=== PATIENT | male | born 1935 | race Caucasian/White ===

== ENCOUNTER 2016-11-26 08:59 | Inpatient (IN) | payer MEDICARE, BC ==
[2016-11-26] VITALS (13 sets, daily range): BP systolic 150–181; BP diastolic 60–95; PULSE 54–71; RESP 18–23; TEMP 97.4–98.6; O2SAT 90–98
[~2016-11-26] VITALS: Ht 177.8 cm; Wt 116.2 kg
[~2016-11-26 08:59] MED LIST: ASTE137S5; CENTTAB9 PO; CILO100T PO; CLOP75 PO; DIGO0.12 PO; EQL400TA PO; GABA300C3 PO; KRIL300C PO; LANTINJ SC; LISI-366 PO; METF-324 PO; METO25 PO; ROSU5 PO; SYMB160A INH; WARF5TAB PO; ZYRT10TA12 PO
[2016-11-26] MEDS ORDERED: APIX5TAB PO (09:27)
[2016-11-26 10:07] LABS: AUTOMATED NEUTROPHIL # 6.4 TH/MM3 (1.8-7.7); BASOPHIL # 0.1 TH/MM3 (0-0.2); EOSINOPHIL # 0.3 TH/MM3 (0-0.4); EOSINOPHIL % 3.1 % (0.0-4.0); HEMATOCRIT 36.7 % (39.0-51.0); HEMO FLAGS DIFF FINAL; LYMPH % 12.9 % (9.0-44.0); LYMPHOCYTE # 1.1 TH/MM3 (1.0-4.8); MEAN CELL VOLUME 90.7 FL (80.0-100.0); MEAN CORPUSCULAR HEMOGLOBIN 31.9 PG (27.0-34.0); MEAN CORPUSCULAR HGB CONC 35.2 % (32.0-36.0); PLATELET COUNT 183 TH/MM3 (150-450); RED BLOOD COUNT 4.05 MIL/MM3 (4.50-5.90); RED CELL DISTRIBUTION WIDTH 14.7 % (11.6-17.2); WHITE BLOOD COUNT 8.7 TH/MM3 (4.0-11.0)
[2016-11-26] MEDS ORDERED: FOLI400T PO (10:15)
[2016-11-26] MEDS ORDERED: LANTINJ SQ (10:15)
[2016-11-26] MEDS ORDERED: LISI40TA PO (10:15)
[2016-11-26] MEDS ORDERED: NIAC500T18 PO (10:15)
[2016-11-26] MEDS ORDERED: ATOR1TAB18 PO (10:15)
[2016-11-26] MEDS ORDERED: KRIL300C3 PO (10:15)
[2016-11-26] MEDS ORDERED: METO25TA3 PO (10:15)
[2016-11-26] MEDS ORDERED: SYMB80AE INH (10:15)
[2016-11-26] MEDS ORDERED: DIGO0.12 PO (10:15)
[2016-11-26] MEDS ORDERED: COQ-100C2 PO (10:15)
[2016-11-26] MEDS ORDERED: SODIUM CHLOR 0.9% 1000 ML INJ 1,000 ML IV SCH (10:15)
[2016-11-26] MEDS ORDERED: CENTTAB PO (10:15)
[2016-11-26] MEDS ORDERED: CALC0.25 PO (10:15)
[2016-11-26] MEDS ORDERED: CILO100T PO (10:15)
[2016-11-26 10:18] LABS: APTT (PATIENT) 27.8 SEC (24.3-30.1); PROTHROMBIN TIME - PATIENT 11.3 SEC (9.8-11.6)
[2016-11-26 10:41] LABS: BICARBONATE 21.2 MEQ/L (21.0-32.0); POTASSIUM 4.1 MEQ/L (3.5-5.1)
[2016-11-26] MEDS ORDERED: MIDAZOLAM HCL 5 MG/5 ML VIAL ONE (11:35)
[2016-11-26] MEDS ORDERED: fentaNYL CITRATE 250 MCG/5 ML AMP ONE (11:36)
[2016-11-26] MEDS ORDERED: HEPARIN-D5W INJ 250 ML ONE (12:25)
--- NOTE | 2016-11-26 12:38 | PD.RAD ---
Post Procedure Progress Note Pre Procedure Diagnosis: (1) Claudication Post Procedure Diagnosis: (1) Claudication Procedure Date: Nov 26, 2016 Supervising Radiologist: Jb Nayak Proceduralist/Assist: Tina Tran, RT(R), Stephany Carson RT(R)() Anesthesia: Conscious Sedation Plan of Activity Patient to Unit: Nursing Unit Patient Condition: Good See PACS Report for procedural detail/treatment Vascular-Arterial Procedure Procedure 1 Procedure Site: Right Leg Access Access Site(s): Other (right fem fem bypass) Sheath(s) Remaining: Other (right fem fem bypass) Jb Nayak MD Nov 26, 2016 12:38
[2016-11-26] MEDS ORDERED: MORPHINE SULFATE 4 MG/ML INJ IV PUSH PRN (12:45)
[2016-11-26] MEDS ORDERED: HEPARIN INJ 1,000 UNITS in SODIUM CHLORID 0.9% 500 ML INJ 500 ML IART PRN (12:45)
[2016-11-26] MEDS ORDERED: ONDANSETRON HCL 4 MG/2 ML VIAL IV PRN (12:45)
[2016-11-26] MEDS: CATHFLO ACTIVASE INJ 10 MG in SODIUM CHLORID 0.9% 500 ML INJ 500 ML IART SCH ×2 (13:34→20:54)
[2016-11-26] MEDS ORDERED: HEPARIN-D5W INJ 250 ML IV SCH (14:00)
[2016-11-26] MEDS ORDERED: HEPARIN INJ 1,000 UNITS in SODIUM CHLORID 0.9% 500 ML INJ 500 ML IART SCH (14:00)
[2016-11-26] MEDS ORDERED: GLUCAGON 1 MG/ML VIAL OTHER PRN (15:45)
[2016-11-26] MEDS ORDERED: DEXTROSE 50% IN WATER 50 ML VIAL(D50) IV PUSH PRN (15:45)
[2016-11-26] MEDS: MORPHINE SULFATE 4 MG/ML INJ IV PUSH PRN (16:05)
--- NOTE | 2016-11-26 16:56 | RADRPT ---
EXAM DATE/TIME: 11/26/2016 11:27 [facility] COMPARISON: No previous studies available for comparison. INDICATIONS : Patient with history of thrombus in need of leg angiogram for thrombolytic infusion. MEDICAL HISTORY : Bilateral lower extremity claudication, Diabetes, CAD, HTN, A-Fib, HLD, Peripheral neuropathy, COPD, GERD, Arthritis SURGICAL HISTORY : Right ureteral stent placement and removal, Right and left carotid endarterectomy, CABG X4, Left comm on iliac covered stent placement, Left to Right femoral-femoral bypass ENCOUNTER: Initial ACUITY: 1 month PAIN SCORE: 0/10 FLUORO TIME: 5.8 minutes ACCESS SITE: Right Femoral artery SEDATION TIME: 30 minutes MEDICATION(S): 1.) 2 mg midazolam (Versed) IV 2.) 100 mcg fentanyl (Sublimaze) IV DEVICE(S): 1.) Right to left Femoral-Femoral bypass EV3 Infusion catheter [id number] PROCEDURE : 1. Ultrasound-guided puncture of the access site. 2. Conscious sedation with continuous EKG and oximetry monitoring. 3. Angiography of the pelvis 4. Angiography of the left to right femoral-femoral bypass graft 5. Infusion for thrombolysis The risks, benefits and alternatives to the procedure were explained and verbal and written consent w as obtained. The site was prepped in sterile fashion. Full sterile technique was used, including ca p, mask, sterile gloves and gown and a large sterile sheet. Hand hygiene and 2% chlorhexidine and/or betadine/alcohol prep was utilized per protocol for cutaneous antisepsis. The skin and subcutaneous tissues were infiltrated with local anesthetic solution. With ultrasound and fluoroscopic guidance the prescribed common femoral artery was punctured and a va scular sheath was placed in the femoral-femoral bypass graft from right to left. An Omni Flush cathet er was advanced through the graft into the distal aorta. CO2 angiography was performed over the pelvi s and the catheter was then pulled back into the femoral-femoral bypass graft. Examination demonstrat es no evidence of inflow stenosis. There is complete thrombosis of the bypass graft. The catheter was exchanged for a 30 cm multiside hole infusion catheter and TPA infusion was begun. If you've has con tinued overnight and the patient will be revaluated the following day. Conscious sedation was performed with the prescribed dosages and duration as above. EKG and oximetry remained stable throughout the procedure. CONCLUSION: Uncomplicated initiation of thrombolytic therapy as above. Complete occlusion of femo ral-femoral bypass graft Jb Nayak MD on November 26, 2016 at 16:33 Board Certified Radiologist. This report was verified electronically.
--- NOTE | 2016-11-26 19:04 | PD.CONS ---
HPI Service [facility] Hospitalists Consult Requested By Dr Fowler Reason for Consult medical management Primary Care Physician Kamille Fairchild Diagnoses: History of Present Illness 81-year-old male with multiple multiple medical problems. The patient is known to Dr Fowler vascular surgeon for previous vascular procedures. Patient says he had his [address] Fowler a week ago and says he also had experienced some pain in his right leg more than usual getting worse over the past week. The patient was seen by Dr Fowler in his office was found with complete occlusion of femoral graft IS and he was sent to [place] for IR intervention by IR, patient is s/p Us guided thrombolytic infusion. He is observed overnight in ICU. Patient was seen after the procedure in ICU. He feels good. No fever or chills. No n/v/d/c. Was able to eat without n/v. Plan for repeat thrombolytic infusion tomorrow . Patient is NPO . Will hold lantus and all his home DM meds for now. will place on ISS and accuchecks. Patient has no pain at this time. Doppler US at bedside shows good peripheral pulses. No rash. Legs are warm, neurovascular intact. No fever or chills. No chest pain or sob. No diaphoresis, lightheadedness. Denies headache, change in vision. Able to urinate after the procedure, no hematuria. No over bleeding. Review of Systems Other 12 ROS reviewed, negative except stated in HPI Past Family Social History Allergies: Coded Allergies: Penicillin (Unverified Allergy, Severe, RASH, 11/26/16) Past Medical History History of bilateral lower extremity palpitations status post multiple stents Type 2 diabetes mellitus coronary artery disease status post coronary artery bypass graft chronic persistent atrial fibrillation Hypertension Hypercholesterolemia Diabetes peripheral neuropathy Lumbosacral degenerative joint disease COPD Past Surgical History Left common iliac stent placement/left to right femoral - femoral bypass Right urethral stent May 2000 and removed June 2000 Right carotid endarterectomy in 1999 preceding four-vessel CABG Left carotid endarterectomy 03/18/12 Reported Medications Reported Meds & Active Scripts Active Reported Niacin (Niacinamide) 500 Mg Tab 1 Tab PO BID Coq-10 (Coenzyme Q10 (Ubidecarenone)) 100 Mg Cap 1 Cap PO DAILY Symbicort Inh (Budesonide/Formoterol Fumarate) 80-4.5 Mcg/Act Aero 2 Puff INH BID Calcitriol 0.25 Mcg Cap 0.25 Mcg PO HS Atorvastatin (Atorvastatin Calcium) 80 Mg Tab 40 Mg PO HS Lisinopril 40 Mg Tab 40 Mg PO DAILY Cilostazol 100 Mg Tab 100 Mg PO HS Lantus Solostar Pen Inj (Insulin Glargine) 300 Unit/3 Ml Pen 26 Units SQ HS Krill Oil [place]-3 300 mg (Krill Oil) 1 Cap Cap 1 Cap PO DAILY Metoprolol Tartrate 25 Mg Tab 25 Mg PO BID Centrum Silver (Multiple Vitamins W/ Minerals) 1 Tab 1 Tab PO DAILY Folic Acid 400 Mcg Tab 400 Mcg PO DAILY Digoxin 0.125 Mg Tab 0.125 Mg PO EVERY OTHER DAY Eliquis (Apixaban) 5 Mg Tab 5 Mg PO BID Crestor (Rosuvastatin Calcium) 5 Mg Tab 5 Mg PO HS UNKNOWN DOSE Cilostazol 100 Mg Tab 100 Mg PO BID Plavix (Clopidogrel Bisulfate) 75 Mg Tab 75 Mg PO DAILY Lisinopril 40 mg (Lisinopril) 40 Mg Tab 40 Mg PO DAILY Lantus Solostar Pen (Insulin Glargine) 100 Units/Ml Vial 32 Units SC HS Zyrtec (Cetirizine HCl) 10 Mg Tab 10 Mg PO DAILYPRN Gabapentin 300 Mg Cap 300 Mg PO BID Krill Otb543 Mg 300 Mg Cap 300 Mg PO DAILY Symbicort (Budesonide/Formoterol Fumarate) 160 Mcg/4.5 Mcg Aer 2 Puff INH DAILYPRN * SHAKE WELL BEFORE USE * Metoprolol Tartrate 25 mg (Metoprolol Tartrate) 25 Mg Tab 25 Mg PO BID Centrum (Multivitamins) Tab 1 Tab PO DAILY Metformin ER 24 HR (Metformin HCl) 1,000 Mg Tab 1,000 Mg PO BID Eql Folic Acid (Folic Acid) 400 Mcg Tab 400 Mcg PO DAILY Digoxin 0.125 mg (Digoxin) 0.125 Mg Tab 0.125 Mg PO EVERY OTHER DAY Astelin (Azelastine HCl) 137 Mcg Spr 1 Inhalation NA DIRECTED Family History History of smoking 20 year pack. Quit smoking 30 years ago. 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 No illicit drug use or alcohol use. Social History Father at the age of 78 and leukemia Mother heart failure, at the age of 82. Physical Exam Vital Signs Vital Signs Date Time Temp Pulse Resp B/P Pulse Ox O2 Delivery O2 Flow Rate FiO2 11/26/16 16:35 58 18 150/70 97 11/26/16 16:05 62 18 151/60 97 11/26/16 15:35 62 18 151/60 97 11/26/16 15:05 55 18 155/78 98 11/26/16 14:35 58 18 170/85 97 11/26/16 14:05 58 18 167/80 97 11/26/16 13:35 58 18 160/87 97 11/26/16 13:05 56 18 176/87 98 11/26/16 12:50 97.4 54 20 159/86 90 11/26/16 09:27 97.6 71 20 181/95 93 Physical Exam GENERAL: This is a well-nourished, well-developed patient, in no apparent distress. SKIN: No rashes, ecchymoses or lesions. Cool and dry. HEAD: Atraumatic. Normocephalic. No temporal or scalp tenderness. EYES: Pupils equal round and reactive. Extraocular motions intact. No scleral icterus. No injection or drainage. ENT: Nose without bleeding, purulent drainage or septal hematoma. Throat without erythema, tonsillar hypertrophy or exudate. Uvula midline. Airway patent. NECK: Trachea midline. No JVD or lymphadenopathy. Supple, nontender, no meningeal signs. CARDIOVASCULAR: Regular rate and rhythm without murmurs, gallops, or rubs. RESPIRATORY: Clear to auscultation. Breath sounds equal bilaterally. No wheezes , rales, or rhonchi. GASTROINTESTINAL: Abdomen soft, non-tender, nondistended. No hepato-splenomegaly , or palpable masses. No guarding. MUSCULOSKELETAL: Extremities without clubbing, cyanosis, or edema. No joint tenderness, effusion, or edema noted. BL DP pulses present by US doppler at bedside NEUROLOGICAL: Awake and alert. Cranial nerves II through XII intact. Motor and sensory grossly within normal limits. Five out of 5 muscle strength in all muscle groups. Normal speech. Laboratory Laboratory Tests Test 11/26/16 09:50 White Blood Count 8.7 Red Blood Count 4.05 Hemoglobin 12.9 Hematocrit 36.7 Mean Corpuscular Volume 90.7 Mean Corpuscular Hemoglobin 31.9 Mean Corpuscular Hemoglobin 35.2 Concent Red Cell Distribution Width 14.7 Platelet Count 183 Mean Platelet Volume 7.4 Neutrophils (%) (Auto) 73.0 Lymphocytes (%) (Auto) 12.9 Monocytes (%) (Auto) 10.0 Eosinophils (%) (Auto) 3.1 Basophils (%) (Auto) 1.0 Neutrophils # (Auto) 6.4 Lymphocytes # (Auto) 1.1 Monocytes # (Auto) 0.9 Eosinophils # (Auto) 0.3 Basophils # (Auto) 0.1 CBC Comment DIFF FINAL Differential Comment Prothrombin Time 11.3 Prothromb Time International 1.0 Ratio Activated Partial 27.8 Thromboplast Time Sodium Level 142 Potassium Level 4.1 Chloride Level 110 Carbon Dioxide Level 21.2 Anion Gap 11 Blood Urea Nitrogen 39 Creatinine 2.10 Estimat Glomerular Filtration 31 Rate Random Glucose 135 Calcium Level 8.6 Result Diagram: 11/26/16 0950 11/26/16 0950 Imaging Last Impressions Angiography 11/26/16 0000 Signed Impressions: Service Date/Time: Saturday, November 26, 2016 11:27 - CONCLUSION: Uncomplicated initiation of thrombolytic therapy as above. Complete occlusion of femoral-femoral bypass graft Jb Nayak MD Assessment and Plan Assessment and Plan Complete occlusion of femoral graft IS status post procedure by IR Dr. Nayak Patient has a h/o History of bilateral lower extremity palpitations status post multiple stents Management per Dr. Fowler and Dr. Nayak Admitted to ICU overnight for close observation Vital signs stable at this time. Monitor closely. Check CBC and BMP tomorrow. Type 2 diabetes mellitus/ Diabetes peripheral neuropathy. Insulin sliding scale , hold Lantus as patient will be frequently NPO, check BS Accu-Cheks. Resume gabapentin Coronary artery disease status post coronary artery bypass graft chronic persistent atrial fibrillation, Hypertension, Hypercholesterolemia. Stable at this time. Continue home medications. Lumbosacral degenerative joint disease. Stable at this time. Continue home medications COPD. Stable without exacerbation. Continue home medications. Code Status full code Discussed Condition With patient nurse from [facility] and nurse from ICU Cathleen Ramon MD Nov 26, 2016 19:04
[2016-11-26] MEDS ORDERED: INSULIN DETEMIR 100 UNITS/ML VIAL SQ SCH (21:00)
[2016-11-26] MEDS: INSULIN ASPART SUPPLEMENTAL SCALE SQ SCH (21:00)
[2016-11-26] MEDS ORDERED: APIXABAN 5 MG TABLET PO SCH (21:00)
[2016-11-26] MEDS: ATORVASTATIN 40 MG TAB PO SCH (21:23)
[2016-11-26] MEDS: CALCITRIOL 0.25 MCG CAP PO SCH (21:23)
[2016-11-26] MEDS: METOPROLOL TARTRATE 25 MG TAB PO SCH (21:23)
[2016-11-26] MEDS: CILOSTAZOL 100 MG TAB PO SCH (21:36)
[2016-11-26] MEDS: BUDESONIDE-FORMOTEROL 80/4.5 MCG INHALER INH SCH (21:36)
[2016-11-26] MEDS: NIACIN 100 MG TAB PO SCH (21:36)
[2016-11-27] VITALS (11 sets, daily range): BP systolic 102–157; BP diastolic 46–81; PULSE 10–102; RESP 16–26; TEMP 96.5–98.8; O2SAT 96
[2016-11-27 06:51] LABS: APTT (PATIENT) 28.2 SEC (24.3-30.1)
[2016-11-27] MEDS: INSULIN ASPART SUPPLEMENTAL SCALE SQ SCH ×3 (07:00→20:23)
[2016-11-27] MEDS: MORPHINE SULFATE 4 MG/ML INJ IV PUSH PRN ×2 (07:26→07:30)
[2016-11-27] MEDS: NIACIN 100 MG TAB PO SCH ×2 (08:32→20:24)
[2016-11-27] MEDS: FOLIC ACID 1 MG TAB PO SCH (08:32)
[2016-11-27] MEDS: CATHFLO ACTIVASE INJ 10 MG in SODIUM CHLORID 0.9% 500 ML INJ 500 ML IART SCH (08:32)
[2016-11-27] MEDS: LISINOPRIL 20 MG TAB PO SCH (08:32)
[2016-11-27] MEDS: BUDESONIDE-FORMOTEROL 80/4.5 MCG INHALER INH SCH ×2 (08:33→20:25)
[2016-11-27] MEDS: METOPROLOL TARTRATE 25 MG TAB PO SCH ×2 (08:40→20:23)
[2016-11-27] MEDS ORDERED: CLOPIDOGREL 75 MG TAB PO SCH (09:00)
[2016-11-27] MEDS ORDERED: MIDAZOLAM HCL 5 MG/5 ML VIAL ONE (10:52)
[2016-11-27] MEDS ORDERED: fentaNYL CITRATE 250 MCG/5 ML AMP ONE (10:52)
[2016-11-27] MEDS ORDERED: IODIXANOL 320 MG/ML 50 ML VIAL (for RAD SPEC) I-ARTERIAL ONE (13:05)
--- NOTE | 2016-11-27 13:41 | HHI.PR ---
Subjective Remarks No events overnight. Denies chest pain, sob, n/v/d/c. Complaint of back pain in the morning. Says is not a new back pain however is getting worse. Received morphine, improved significantly. NPO will go for repeat thrombolytic therapy today. Objective Vitals Vital Signs Date Time Temp Pulse Resp B/P Pulse Ox O2 Delivery O2 Flow Rate FiO2 11/27/16 10:00 69 11/27/16 08:00 82 11/27/16 08:00 96.5 82 16 130/62 96 11/27/16 07:35 16 11/27/16 06:00 81 11/27/16 04:00 98.6 75 23 135/81 96 11/27/16 04:00 66 11/27/16 02:00 78 11/27/16 00:00 98.5 61 22 157/64 96 11/27/16 00:00 61 11/26/16 22:00 66 11/26/16 20:00 66 11/26/16 20:00 98.6 69 23 156/75 96 11/26/16 18:00 62 11/26/16 16:35 58 18 150/70 97 11/26/16 16:05 62 18 151/60 97 11/26/16 15:35 62 18 151/60 97 11/26/16 15:05 55 18 155/78 98 11/26/16 14:35 58 18 170/85 97 11/26/16 14:05 58 18 167/80 97 I/O 11/26/16 11/26/16 11/26/16 11/27/16 11/27/16 11/27/16 07:00 15:00 23:00 07:00 15:00 23:00 Intake Total 813 ml 689 ml Output Total 1500 ml 950 ml Balance -687 ml -261 ml Intake Oral 450 ml 200 ml IV Total 363 ml 489 ml Output Urine Total 1500 ml 950 ml Result Diagram: 11/26/16 0950 11/26/16 0950 Imaging Last Impressions Angiography 11/26/16 0000 Signed Impressions: Service Date/Time: Saturday, November 26, 2016 11:27 - CONCLUSION: Uncomplicated initiation of thrombolytic therapy as above. Complete occlusion of femoral-femoral bypass graft Jb Nayak MD Objective Remarks GENERAL: This is a well-nourished, well-developed patient, in no apparent distress. SKIN: No rashes, ecchymoses or lesions. Cool and dry. HEAD: Atraumatic. Normocephalic. No temporal or scalp tenderness. EYES: Pupils equal round and reactive. Extraocular motions intact. No scleral icterus. No injection or drainage. ENT: Nose without bleeding, purulent drainage or septal hematoma. Throat without erythema, tonsillar hypertrophy or exudate. Uvula midline. Airway patent. NECK: Trachea midline. No JVD or lymphadenopathy. Supple, nontender, no meningeal signs. CARDIOVASCULAR: Regular rate and rhythm without murmurs, gallops, or rubs. RESPIRATORY: Clear to auscultation. Breath sounds equal bilaterally. No wheezes , rales, or rhonchi. GASTROINTESTINAL: Abdomen soft, non-tender, nondistended. No hepato-splenomegaly , or palpable masses. No guarding. MUSCULOSKELETAL: Extremities without clubbing, cyanosis, or edema. No joint tenderness, effusion, or edema noted. BL DP pulses present by US doppler at bedside NEUROLOGICAL: Awake and alert. Cranial nerves II through XII intact. Motor and sensory grossly within normal limits. Five out of 5 muscle strength in all muscle groups. Normal speech. A/P Assessment and Plan Complete occlusion of femoral graft IS status post procedure by IR Dr. Nayak Patient has a h/o History of bilateral lower extremity palpitations status post multiple stents Management per Dr. Fowler and Dr. Nayak Vital signs stable at this time. Monitor closely. Check CBC and BMP stable, monitor Plan for fempop revascularization with TPA by Dr Fowler Type 2 diabetes mellitus/ Diabetes peripheral neuropathy. Insulin sliding scale , resume Lantus, check Accu-Cheks. Resume gabapentin Coronary artery disease status post coronary artery bypass graft chronic persistent atrial fibrillation, Hypertension, Hypercholesterolemia. Stable at this time. Continue home medications. Lumbosacral degenerative joint disease. Stable at this time. Continue home medications COPD. Stable without exacerbation. Continue home medications. Discussed Condition With patient, at bedside, ICU nurse Cathleen Ramon MD Nov 27, 2016 13:40
[2016-11-27] MEDS ORDERED: SODIUM CHLOR 0.9% 1000 ML INJ 1,000 ML IV SCH (14:17)
--- NOTE | 2016-11-27 14:21 | PD.RAD ---
Post Procedure Progress Note Pre Procedure Diagnosis: (1) Claudication Post Procedure Diagnosis: (1) Claudication Procedure Date: Nov 27, 2016 Supervising Radiologist: Jb Nayak Proceduralist/Assist: Quintin Cuadra, RT(R), Maria Teresa Uribe, RT(R)(CV), Tina Tran, RT(R), Stephany Carson, RT(R)(), Sapna Oneill, RT(R)() Anesthesia: Conscious Sedation Plan of Activity Patient to Unit: Nursing Unit Patient Condition: Good See PACS Report for procedural detail/treatment Vascular-Arterial Procedure Procedure 1 Procedure Site: Abdominal Access Access Site(s): Other (fem fem bypass graft right and left) Closure Site(s): Right manual pressure, Left manual pressure Jb Nayak MD Nov 27, 2016 14:20
[2016-11-27 15:54] LABS: HEMATOCRIT 38.3 % (39.0-51.0); MEAN CELL VOLUME 91.5 FL (80.0-100.0); MEAN CORPUSCULAR HEMOGLOBIN 30.9 PG (27.0-34.0); MEAN CORPUSCULAR HGB CONC 33.7 % (32.0-36.0); PLATELET COUNT 158 TH/MM3 (150-450); RED BLOOD COUNT 4.19 MIL/MM3 (4.50-5.90); RED CELL DISTRIBUTION WIDTH 14.9 % (11.6-17.2); REVIEW FLAG FINAL; WHITE BLOOD COUNT 14.3 TH/MM3 (4.0-11.0)
[2016-11-27 16:02] LABS: APTT (PATIENT) 28.6 SEC (24.3-30.1); INTERNATIONAL NORMALIZED RATIO 1.1 RATIO
[2016-11-27] MEDS: HEPARIN 25,000 UNITS-D5W 250 ML - PREMIX IV SCH ×2 (16:07→23:21)
--- NOTE | 2016-11-27 16:41 | RADRPT ---
EXAM DATE/TIME: 11/27/2016 11:02 [facility] COMPARISON: No previous studies available for comparison. INDICATIONS : Patient with history of thrombus in need of follow up thrombolytic infusion. MEDICAL HISTORY : Diabetes, CAD, A-Fib, HTN, HLD, Peripheral neuropathy, COPD, GERD, Arthritis SURGICAL HISTORY : Left common iliac stent placement, Left to right femoral-femoral bypass, Right ureteral stent placeme nt and removal, Right and left carotid endarterectomy, CABG X4 ENCOUNTER: Subsequent ACUITY: 1 day PAIN SCORE: 0/10 FLUORO TIME: 23.8 minutes ACCESS SITE: Left Femoral artery SEDATION TIME: 75 minutes CONTRAST: 1.) 8 cc Visipaque (iodixanol) MEDICATION(S): 1.) 3 mg midazolam (Versed) IV 2.) 150 mcg fentanyl (Sublimaze) IV DEVICE(S): 1.) Right Bypass graft/Femoral artery MICROCHIP SPECIALIST balloon [place] [id number] 75CM 2.) Right Bypass graft/Femoral artery MICROCHIP SPECIALIST balloon [place] [id number] 75CM 3.) Right Bypass graft/Femoral artery MICROCHIP SPECIALIST balloon Peripheral cutting balloon [id number] PROCEDURE: 1. Followup thrombolysis 2. shot guided puncture of the femoral femoral bypass graft on the left 3. angioplasty of the right femoral-femoral bypass graft anastomosis 4. Angiography of the right lower extremity. 5. Conscious sedation with continuous EKG and oximetry monitoring. Following TPA infusion the patient returned to the angiography suite for evaluation. Injection of the graft demonstrates no evidence of inflow stenosis and brisk antegrade flow to the di stal portion of the graft but no outflow stenosis. With ultrasound and fluoroscopic guidance the graft was punctured on the left directed towards the ou tflow and angiography demonstrates complete occlusion at the level of the anastomosis. A guidewire wa s advanced through the anastomosis and serial angioplasty was performed to a diameter of 7 mm. Follow up angiography demonstrates complete resolution of this stenosis. CO2 angiography was performed to ev aluated distal runoff to the level of the knee which was intact. Total contrast volume was 8 cc. Conscious sedation was performed with the prescribed dosages and duration as above. EKG and oximetry remained stable throughout the procedure. CONCLUSION: 1. Uncomplicated thrombolysis and angioplasty of occluded femoral femoral bypass graft. Jb Nayak MD on November 27, 2016 at 16:35 Board Certified Radiologist. This report was verified electronically.
[2016-11-27] MEDS: ACETAMINOPHEN 325 MG TAB PO PRN (17:08)
[2016-11-27] MEDS: CALCITRIOL 0.25 MCG CAP PO SCH (20:23)
[2016-11-27] MEDS: ATORVASTATIN 40 MG TAB PO SCH (20:23)
[2016-11-27] MEDS: CILOSTAZOL 100 MG TAB PO SCH (20:24)
[2016-11-27 23:19] LABS: APTT (PATIENT) 81.2 SEC (24.3-30.1)
[2016-11-28] VITALS (12 sets, daily range): BP systolic 93–124; BP diastolic 50–67; PULSE 68–131; RESP 17–24; TEMP 98.1–99; O2SAT 94–97
[2016-11-28 05:37] LABS: AUTOMATED NEUTROPHIL # 10.2 TH/MM3 (1.8-7.7); BASOPHIL % 0.3 % (0.0-2.0); EOSINOPHIL # 0.3 TH/MM3 (0-0.4); EOSINOPHIL % 2.3 % (0.0-4.0); HEMATOCRIT 31.9 % (39.0-51.0); HEMO FLAGS DIFF FINAL; LYMPH % 8.2 % (9.0-44.0); LYMPHOCYTE # 1.1 TH/MM3 (1.0-4.8); MEAN CELL VOLUME 90.6 FL (80.0-100.0); MEAN CORPUSCULAR HEMOGLOBIN 30.8 PG (27.0-34.0); MONO % 10.2 % (0.0-8.0); PLATELET COUNT 142 TH/MM3 (150-450); RED BLOOD COUNT 3.52 MIL/MM3 (4.50-5.90); RED CELL DISTRIBUTION WIDTH 14.7 % (11.6-17.2); WHITE BLOOD COUNT 12.9 TH/MM3 (4.0-11.0)
[2016-11-28 05:54] LABS: APTT (PATIENT) 105.3 SEC (24.3-30.1)
[2016-11-28] MEDS: MORPHINE SULFATE 4 MG/ML INJ IV PUSH PRN (05:57)
[2016-11-28 06:02] LABS: POTASSIUM 4.3 MEQ/L (3.5-5.1)
[2016-11-28] MEDS: INSULIN ASPART SUPPLEMENTAL SCALE SQ SCH ×4 (06:23→21:44)
[2016-11-28] MEDS: ACETAMINOPHEN 325 MG TAB PO PRN (06:41)
--- NOTE | 2016-11-28 09:11 | HHI.PR ---
Subjective Remarks Complaints of right arm pain. Says he has arthritis in the right arm/hand. Says morphine helps. No nausea, vomiting, diarrhea or constipation. Denies fevers chills. No signs of overt bleeding. Kidney function improving. Objective Vitals Vital Signs Date Time Temp Pulse Resp B/P Pulse Ox O2 Delivery O2 Flow Rate FiO2 11/28/16 06:00 131 11/28/16 04:00 106 11/28/16 04:00 99.0 106 21 104/58 94 11/28/16 02:00 95 11/28/16 00:00 98.7 83 21 112/57 96 11/28/16 00:00 83 11/27/16 22:00 89 11/27/16 20:00 98.8 102 20 111/56 96 Automatic Cuff 11/27/16 20:00 102 11/27/16 18:00 10 11/27/16 16:00 97.6 88 26 149/72 96 11/27/16 16:00 88 11/27/16 14:00 96 Nasal Cannula 2.00 11/27/16 14:00 97.4 61 24 102/46 96 11/27/16 14:00 71 11/27/16 10:00 69 I/O 11/27/16 11/27/16 11/27/16 11/28/16 11/28/16 11/28/16 07:00 15:00 23:00 07:00 15:00 23:00 Intake Total 689 ml 1115 ml 492 ml Output Total 950 ml 650 ml 400 ml 250 ml Balance -261 ml -650 ml 715 ml 242 ml Intake Oral 200 ml 360 ml 120 ml IV Total 489 ml 755 ml 372 ml Output Urine Total 950 ml 650 ml 400 ml 250 ml Result Diagram: 11/28/16 0520 11/28/16 0520 Imaging Last Impressions Upper Extremity Ultrasound 11/28/16 0000 Signed Impressions: Service Date/Time: Monday, November 28, 2016 11:10 - CONCLUSION: There is no thrombosis identified. Han Potts MD FACR Miscellaneous Special Procedure 11/27/16 0000 Signed Impressions: Service Date/Time: Sunday, November 27, 2016 11:02 - CONCLUSION: 1. Uncomplicated thrombolysis and angioplasty of occluded femoral femoral bypass graft. Jb Nayak MD Angiography 11/26/16 0000 Signed Impressions: Service Date/Time: Saturday, November 26, 2016 11:27 - CONCLUSION: Uncomplicated initiation of thrombolytic therapy as above. Complete occlusion of femoral-femoral bypass graft Jb Nayak MD Objective Remarks GENERAL: This is a well-nourished, well-developed patient, in no apparent distress. SKIN: No rashes, ecchymoses or lesions. Cool and dry. HEAD: Atraumatic. Normocephalic. No temporal or scalp tenderness. EYES: Pupils equal round and reactive. Extraocular motions intact. No scleral icterus. No injection or drainage. ENT: Nose without bleeding, purulent drainage or septal hematoma. Throat without erythema, tonsillar hypertrophy or exudate. Uvula midline. Airway patent. NECK: Trachea midline. No JVD or lymphadenopathy. Supple, nontender, no meningeal signs. CARDIOVASCULAR: Regular rate and rhythm without murmurs, gallops, or rubs. RESPIRATORY: Clear to auscultation. Breath sounds equal bilaterally. No wheezes , rales, or rhonchi. GASTROINTESTINAL: Abdomen soft, non-tender, nondistended. No hepato-splenomegaly , or palpable masses. No guarding. MUSCULOSKELETAL: Extremities without clubbing, cyanosis, or edema. No joint tenderness, effusion, or edema noted. BL DP pulses present by US doppler at bedside NEUROLOGICAL: Awake and alert. Cranial nerves II through XII intact. Motor and sensory grossly within normal limits. Five out of 5 muscle strength in all muscle groups. Normal speech. A/P Assessment and Plan Complete occlusion of femoral graft IS status post procedure by IR Dr. Nayak Patient has a h/o History of bilateral lower extremity palpitations status post multiple stents Management per Dr. Fowler and Dr. Nayak Vital signs stable at this time. Monitor closely. Check CBC and BMP stable, monitor Fempop revascularization with TPA by Dr Fowler With ARCHIE, unknown baselin previous Cr was 1.3. With elevated CR 2.1 and decreased GFR at 31 on admission. Received IVF . Improving. Will do UA and check kidney US Type 2 diabetes mellitus/ Diabetes peripheral neuropathy. Insulin sliding scale , resume Lantus, check Accu-Cheks. Resume gabapentin Coronary artery disease status post coronary artery bypass graft chronic persistent atrial fibrillation, Hypertension, Hypercholesterolemia. Stable at this time. Continue home medications. Lumbosacral degenerative joint disease. Stable at this time. Continue home medications COPD. Stable without exacerbation. Continue home medications. Discussed Condition With patient, at bedside, ICU nurse Discharge Planning Poss DC tomorrow if kidney [email or web address] improves. Cathleen Ramon MD Nov 28, 2016 09:11
[2016-11-28] MEDS ORDERED: NALOXONE HCL 0.4 MG/ML AMP IV PRN (09:15)
[2016-11-28] MEDS ORDERED: SODIUM CHLORIDE 0.9% FLUSH 5 ML FLUSH FLUSH PRN (09:30)
[2016-11-28] MEDS: FOLIC ACID 1 MG TAB PO SCH (09:37)
[2016-11-28] MEDS: DIGOXIN 0.125 MG TAB PO SCH (09:37)
[2016-11-28] MEDS: NIACIN 500 MG EXTENDED RELEASE TAB PO SCH ×2 (09:38→21:39)
[2016-11-28] MEDS: BUDESONIDE-FORMOTEROL 80/4.5 MCG INHALER INH SCH ×2 (09:38→21:40)
[2016-11-28] MEDS: LISINOPRIL 20 MG TAB PO SCH (09:38)
[2016-11-28] MEDS: METOPROLOL TARTRATE 25 MG TAB PO SCH ×2 (09:38→21:39)
[2016-11-28] MEDS: SODIUM CHLOR 0.45% 1000 ML INJ 1,000 ML IV SCH ×2 (11:07→21:45)
[2016-11-28] MEDS: APIXABAN 5 MG TABLET PO SCH ×2 (11:26→21:39)
--- NOTE | 2016-11-28 13:07 | RADRPT ---
EXAM DATE/TIME: 11/28/2016 11:10 [facility] COMPARISON: No previous studies available for comparison. INDICATIONS : Pain. MEDICAL HISTORY : Hypertension. Hypercholesterolemia. Chronic obstructive pulmonary disease. CAD. Afib. Diabetic. SURGICAL HISTORY : CABG Carotid endarterectomy. Fem-Fem Bypass. ENCOUNTER: Initial ACUITY: 1 day PAIN SCORE: 0/10 LOCATION: Bilateral arm. FINDINGS: There is spontaneous flow documented in the brachial, basilic, cephalic, axillary, and subclavian vei ns. The vessels are compressible and augmentation response is documented. No filling defects are se en. The flow is phasic with respiration. Direction of flow in the jugular vein is caudal. CONCLUSION: There is no thrombosis identified. Han Potts MD FACR on November 28, 2016 at 13:04 Board Certified Radiologist. This report was verified electronically.
--- NOTE | 2016-11-28 14:20 | HHI.DCPOC ---
Discharge Care Plan Goals to Promote Your Health * To prevent worsening of your condition and complications * To maintain your health at the optimal level Directions to Meet Your Goals Take your medications as prescribed Follow your dietary instruction Follow activity as directed Keep your appointments as scheduled Take your immunizations and boosters as scheduled If your symptoms worsen call your PCP, if no PCP go to Urgent Care Center or Emergency Room Smoking is Dangerous to Your Health. Avoid second hand smoke Call the 24-hour hour crisis hotline for domestic abuse at Cathleen Ramon MD Nov 28, 2016 14:20
--- NOTE | 2016-11-28 14:21 | HHI.FF ---
Face to Face Verification Diagnosis: (1) Claudication (2) Hypertension (3) Chronic a-fib Physical Therapy Order: Evaluate and Treat Home Health Nursing Order: Medical education Signs/symptoms of disease process Medication education-adverse effect Nursing assessment with vital signs I have seen patient Josiah Anaya on 11/28/16. My clinical findings support the need for the requested home health care services because: Ltd mobility - disease progression I certify that my clinical findings support that this patient is homebound because: Post-op weakness Cathleen Ramon MD Nov 28, 2016 14:21
[2016-11-28 15:06] LABS: BLOOD, URINE NEG (NEG); GLUCOSE,URINE NEG (NEG); HYALINE CAST, URINE 14 /lpf (RARE); KETONE, URINE NEG (NEG); MUCUS URINE FEW /lpf (OCC); NITRITE,URINE NEG (NEG); PH, URINE 5.5 (5.0-8.5); SQUAMOUS EPITHELIAL CELL URINE <1 /hpf (0-5); URINE COLOR YELLOW (YELLW/STRAW)
[2016-11-28 15:15] LABS: COMMENT (UR) CULT NOT INDICATED; CULTURE IF INDICATED CULT NOT INDICATED
--- NOTE | 2016-11-28 15:40 | RADRPT ---
EXAM DATE/TIME: 11/28/2016 11:23 [facility] COMPARISON: No previous studies available for comparison. INDICATIONS : Increased Bun and Creatine. MEDICAL HISTORY : Hypercholesterolemia. Hypertension. Chronic obstructive pulmonary disease. Afib. CAD. Diabetic. SURGICAL HISTORY : Carotid endarterectomy. Fusion, cervical. Fem-Fem bypass. ENCOUNTER: Initial ACUITY: 1 day PAIN SCORE: 0/10 LOCATION: Bilateral flank MEASUREMENTS: RIGHT KIDNEY: 12.3 x 5.6 x 5.8 cm LEFT KIDNEY: 10.1 x 4.4 x 5.4 cm FINDINGS: RIGHT KIDNEY: Renal cortex is normal in thickness and echotexture. No hydronephrosis, stone, or mass. LEFT KIDNEY: Flexing stones are present in the left kidney. There is small amount of fluid in the perinephric spa ce around the kidney. BLADDER: Within normal limits given the degree of distension. CONCLUSION: There is no hydronephrosis Small kidneys with nonobstructing stones on the right Small amount of perinephric fluid on the left. Han Potts MD FACR on November 28, 2016 at 15:36 Board Certified Radiologist. This report was verified electronically.
--- NOTE | 2016-11-28 19:58 | MB ---
cc: BECKY HUGHES MD DATE OF CONSULTATION 11/28/2016 REASON FOR CONSULTATION Elevated BUN and creatinine for evaluation. HISTORY OF PRESENT ILLNESS This is very pleasant 81-year-old male with past medical history of hypertension, chronic kidney disease, diabetes mellitus, hyperlipidemia, peripheral vascular disease, chronic obstructive pulmonary disease who was admitted mainly for the vascular procedures of the legs. I was called to see the patient because of elevated BUN and creatinine. The patient has a known history of chronic kidney disease, he has been following with Dr. Nunez and according to the patient his GFR was fluctuating from 29-36%. He came in here with a creatinine of 2.1 and the GFR of 31 and now the creatinine is 1.86. The patient has peripheral vascular disease and he had bypass done in the past and there was clot with claudication and he had t-PA and then had angiogram and angioplasty done yesterday. The patient has been nonoliguric. He is passing urine but according to him it is dark color. He denies any nausea or vomiting. There is no dysuria, hematuria or difficulty passing urine. Denies any shortness of breath. PAST MEDICAL HISTORY 1. Hypertension. 2. Diabetes mellitus. 3. Chronic obstructive pulmonary disease. 4. Hyperlipidemia. 5. Peripheral vascular disease. 6. Chronic kidney disease. PAST SURGICAL HISTORY 1. History of left common iliac stent placement and right femoral-femoral bypass. 2. History of right ureteral stent in May 2000. 3. Carotid endarterectomy bilaterally. 4. Coronary artery bypass grafting. REVIEW OF SYSTEMS There is no history of fever. No sore throat. No headache, dizziness or blurring of vision. Denies any chest pain. No palpitation. No nausea, vomiting. No abdominal pain. SOCIAL HISTORY The patient is . He has history of smoking for 20 years, stopped 30 years ago. There is no history of heavy alcoholism. FAMILY HISTORY Noncontributory. ALLERGIES HE IS ALLERGIC TO PENICILLIN. MEDICATIONS Currently he is on: 1. Normal saline at 100 an hour. 2. Symbicort two puffs inhaled b.i.d. 3. Lopressor 25 mg b.i.d. 4. Niacin 500 mg b.i.d. 5. Dora-Colace 5 mg b.i.d. 6. Folic acid 1 mg once a day. 7. Lisinopril 40 mg daily. 8. Lipitor 40 mg q.h.s. 9. Rocaltrol 0.25 mcg once a day. 10. Pletal 100 mg q.h.s. 11. Digoxin 0.125 mg every other day. 12. Insulin aspart sliding scale. 13. Morphine as needed. 14. Roxicodone as needed. PHYSICAL EXAMINATION GENERAL: The patient is awake and alert. He is not in acute distress. VITAL SIGNS: His last blood pressure was 120/58, temperature is 98.6, oxygen saturation 96%. HEENT: Pupils equally reactive to light. Nonicteric sclerae. Conjunctivae normal. NECK: Supple. JVD is not elevated. LUNGS: The patient has bilateral good air entry with occasionally wheezing. HEART: S1-S2. Regular rhythm. ABDOMEN: Distended. Soft. Lax. There is no tenderness. Bowel sounds positive. EXTREMITIES: He has mild pedal edema. LABORATORY DATA Investigations, WBC is 12.9, hemoglobin 10.8, platelet count 142, neutrophils 79%. Sodium 141, potassium 4.3, chloride 112, bicarb 20, BUN 24, creatinine 1.86, calcium 7.9. PTT 105.3. Urinalysis showing protein of 30. IMAGING STUDIES The patient had ultrasound of the kidneys done which showed both kidneys are normal in size. No hydronephrosis. Small amount of perinephric fluid in the left side. An ultrasound of the extremities done and shows there is no thrombosis in right upper arm. ASSESSMENT/PLAN 1. Peripheral vascular disease post angiogram and angioplasty. 2. Chronic kidney disease. 3. Hypertension. 4. Diabetes mellitus. 5. Anemia. 6. History of COPD. The patient has chronic kidney disease with proteinuria, most likely he has hypertensive or diabetic nephropathy. He has advanced stage III renal disease and seems like his creatinine is close to his baseline according to the patient. He is getting IV fluid, so far there is not much worsening and the creatinine in fact had some improvement from admission so I am keeping on eye on the kidney function. If creatinine remains stable he can be discharged and followup with Dr. Nunez. Thank you for the consultation. I will follow the patient while he is in the hospital. MD RAGINI Peres/LUIS /5:02 PM /7:44 PM
[2016-11-28] MEDS: ATORVASTATIN 40 MG TAB PO SCH (21:38)
[2016-11-28] MEDS: CALCITRIOL 0.25 MCG CAP PO SCH (21:39)
[2016-11-28] MEDS: SODIUM CHLORIDE 0.9% FLUSH 5 ML FLUSH FLUSH SCH (21:39)
[2016-11-28] MEDS: CILOSTAZOL 100 MG TAB PO SCH (21:39)
[2016-11-29] VITALS (7 sets, daily range): BP systolic 120–175; BP diastolic 60–83; PULSE 64–86; RESP 16–20; TEMP 97.7–98.8; O2SAT 95–98
[2016-11-29] MEDS: SODIUM CHLOR 0.45% 1000 ML INJ 1,000 ML IV SCH ×2 (05:30→17:03)
[2016-11-29 06:25] LABS: AUTOMATED NEUTROPHIL # 6.7 TH/MM3 (1.8-7.7); BASOPHIL % 0.4 % (0.0-2.0); EOSINOPHIL # 0.6 TH/MM3 (0-0.4); EOSINOPHIL % 5.9 % (0.0-4.0); HEMATOCRIT 28.7 % (39.0-51.0); HEMO FLAGS DIFF FINAL; LYMPH % 15.4 % (9.0-44.0); LYMPHOCYTE # 1.5 TH/MM3 (1.0-4.8); MEAN CELL VOLUME 90.7 FL (80.0-100.0); MEAN CORPUSCULAR HEMOGLOBIN 30.9 PG (27.0-34.0); MONO % 10.5 % (0.0-8.0); NEUT % 67.8 % (16.0-70.0); PLATELET COUNT 136 TH/MM3 (150-450); RED BLOOD COUNT 3.16 MIL/MM3 (4.50-5.90); RED CELL DISTRIBUTION WIDTH 14.6 % (11.6-17.2); WHITE BLOOD COUNT 9.9 TH/MM3 (4.0-11.0)
[2016-11-29] MEDS: INSULIN ASPART SUPPLEMENTAL SCALE SQ SCH ×4 (06:25→21:00)
[2016-11-29 07:06] LABS: BICARBONATE 21.1 MEQ/L (21.0-32.0); MAGNESIUM 1.8 MG/DL (1.5-2.5); POTASSIUM 3.8 MEQ/L (3.5-5.1)
[2016-11-29] MEDS: FOLIC ACID 1 MG TAB PO SCH (08:55)
[2016-11-29] MEDS: NIACIN 500 MG EXTENDED RELEASE TAB PO SCH ×2 (08:55→23:19)
[2016-11-29] MEDS: SODIUM CHLORIDE 0.9% FLUSH 5 ML FLUSH FLUSH SCH ×2 (08:55→23:20)
[2016-11-29] MEDS: LISINOPRIL 20 MG TAB PO SCH (08:56)
[2016-11-29] MEDS: METOPROLOL TARTRATE 25 MG TAB PO SCH ×2 (08:56→23:19)
[2016-11-29] MEDS: APIXABAN 5 MG TABLET PO SCH ×2 (08:56→23:20)
[2016-11-29] MEDS: BUDESONIDE-FORMOTEROL 80/4.5 MCG INHALER INH SCH ×2 (08:56→23:23)
--- NOTE | 2016-11-29 11:54 | HHI.NPPN ---
Subjective General Problems: Anemia, Edema, Hypertension Renal Failure: Chronic, Acute, Stage III History of Present Illness 81-year-old male with past medical history of hypertension, chronic kidney disease, diabetes mellitus, hyperlipidemia, peripheral vascular disease, chronic obstructive pulmonary disease who was admitted mainly for the vascular procedures of the legs. I was called to see the patient because of elevated BUN and creatinine. The patient has a known history of chronic kidney disease, he has been following with Dr. Nunez and according to the patient his GFR was fluctuating from 29-36%. Additional Remarks Patient is alert, no SOB, no dysuria, no nausea, eating well. Objective Data Data 11/28/16 11/29/16 19:00 07:00 Intake Total 946 ml 1360 ml Output Total 350 ml 1600 ml Balance 596 ml -240 ml Intake Oral 620 ml 400 ml IV Total 326 ml 960 ml Output Urine Total 350 ml 1600 ml # Bowel Movements 0 0 Vital Signs Date Time Temp Pulse Resp B/P Pulse Ox O2 Delivery O2 Flow Rate FiO2 11/29/16 08:30 97.7 82 20 159/74 98 11/29/16 08:30 81 11/29/16 04:00 98.7 86 20 134/65 96 11/29/16 04:00 Room Air 11/29/16 00:00 98.2 69 18 124/60 96 11/29/16 00:00 64 11/29/16 00:00 Room Air 11/28/16 20:00 92 11/28/16 20:00 98.5 91 18 124/63 96 11/28/16 20:00 Room Air 11/28/16 18:00 68 11/28/16 17:30 98.4 82 18 121/67 97 11/28/16 16:00 71 11/28/16 16:00 98.6 71 24 120/58 96 11/28/16 14:00 83 11/28/16 12:00 81 11/28/16 12:00 98.1 81 20 93/50 96 -: 11/29/16 0605 11/29/16 0605 Physical Exam General Appearance: No Acute Distress, Comfortable Eyes Eye Exam: Pupils Equal Neck Neck Exam: Neck Supple Pulmonary Resp Exam: Clear Bilaterally, Breath Sounds Equal, No Distress, Decreased Bases Cardiology CV Exam: Regular, Normal Sinus Rhythm Gastrointestinal/Abdomen GI Exam: Soft, Non-Tender, Bowel Sounds Present, Non-Distended Extremeties Extremities Exam: Trace Edema Neurologic Neuro Exam: Alert, Awake, Oriented Psychiatric Psych Exam: Appropriate Responses Assessment/Plan Assessment Summary: ARCHIE/Acute Renal Failure, Hypertension, CKD Stage III Problem List: (1) Hypertension (2) Chronic a-fib (3) CAD (coronary artery disease) (4) PVD (peripheral vascular disease) (5) Claudication (6) Stage 3 chronic kidney disease (7) Acute kidney injury Plan Patient has been non oliguric. Creatinine increase to 2.4, possibly related to contrast. Continue IVF, if Creatinine is better or same can be discharged. Avoid Nephrotoxins. Regina Chan MD Nov 29, 2016 11:54
--- NOTE | 2016-11-29 14:16 | HHI.PR ---
Subjective Remarks Follow up on patient with CAD s/p CABG 2002, HTN, CKD, DM, HLD, anemia and PVD s /p revascularization this admission who developed worsening kidney function. Patient reports feeling very well today. He is looking forward to going home, hopefully tomorrow. Denies any complaints at this time including chest pain, SOB or abdominal pain. Reports good appetite. (+)BM this am. Objective Vitals Vital Signs Date Time Temp Pulse Resp B/P Pulse Ox O2 Delivery O2 Flow Rate FiO2 11/29/16 08:30 97.7 82 20 159/74 98 11/29/16 08:30 81 11/29/16 04:00 98.7 86 20 134/65 96 11/29/16 04:00 Room Air 11/29/16 00:00 98.2 69 18 124/60 96 11/29/16 00:00 64 11/29/16 00:00 Room Air 11/28/16 20:00 92 11/28/16 20:00 98.5 91 18 124/63 96 11/28/16 20:00 Room Air 11/28/16 18:00 68 11/28/16 17:30 98.4 82 18 121/67 97 11/28/16 16:00 71 11/28/16 16:00 98.6 71 24 120/58 96 11/28/16 14:00 83 I/O 11/28/16 11/28/16 11/28/16 11/29/16 11/29/16 11/29/16 07:00 15:00 23:00 07:00 15:00 23:00 Intake Total 492 ml 946 ml 1360 ml 240 ml Output Total 250 ml 350 ml 1600 ml 450 ml Balance 242 ml 596 ml -240 ml -210 ml Intake Oral 120 ml 620 ml 400 ml 240 ml IV Total 372 ml 326 ml 960 ml Output Urine Total 250 ml 350 ml 1600 ml 450 ml # Bowel Movements 0 0 Result Diagram: 11/29/1660411/29/16604 Imaging Last 48 hours Impressions Upper Extremity Ultrasound 11/28/16 Signed Impressions: Service Date/Time: Monday, November 28, 2016 11:10 - CONCLUSION: There is no thrombosis identified. Han Potts MD FACR Renal Ultrasound 11/28/16 Signed Impressions: Service Date/Time: Monday, November 28, 2016 11:23 - CONCLUSION: There is no hydronephrosis Small kidneys with nonobstructing stones on the right Small amount of perinephric fluid on the left. Han Potts MD FACR Objective Remarks GENERAL: This is a well-nourished, well-developed patient, in no apparent distress. is at the bedside SKIN: No rashes, ecchymoses or lesions. Cool and dry. HEAD: Atraumatic. Normocephalic. No temporal or scalp tenderness. EYES: Pupils equal round and reactive. Extraocular motions intact. No scleral icterus. No injection or drainage. ENT: Nose without bleeding, purulent drainage or septal hematoma. MMM. NECK: Trachea midline. No JVD or lymphadenopathy. CARDIOVASCULAR: Regular rate and rhythm without murmurs, gallops, or rubs. Mild , trace BLE. RESPIRATORY: Clear to auscultation. Breath sounds equal bilaterally. No wheezes , rales, or rhonchi. GASTROINTESTINAL: Abdomen soft, non-tender, nondistended. No hepato-splenomegaly , or palpable masses. No guarding. MUSCULOSKELETAL: Extremities without clubbing, cyanosis, or edema. No joint tenderness, effusion, or edema noted. NEUROLOGICAL: Awake and alert. Cranial nerves II through XII intact. Motor and sensory grossly within normal limits. Five out of 5 muscle strength in all muscle groups. Normal speech. A/P Assessment and Plan ARCHIE on CKD - unknown baseline, creatinine trending upwards 2.10 -> 1.86 -> 2.41 - possibly related to procedural contrast - Nephrology following - on IVF - closely monitor creatinine - labs in am to assess trend - avoid nephrotoxic agents - SCOT results noted - FENa ordered - repeat UA - PVR - hold ACEI PVD with h/o complete occlusion of femoral graft - s/p fempop revascularization with TPA by IR - c/w Pletal - ambulated over 200ft with PT DM - c/w accuchecks - obtain A1c - BS adequately controlled - c/w ISS HTN - trends shows good control with current regimen except for single elevated measurement - c/w BB - hold ACEI due to ARCHIE - add Norvasc HLD - c/w home Lipitor CAD s/p CABG, h/o atrial fibrillation - c/w current med regimen including Eliquis for OAC - plan to resume daily ASA in am COPD - controlled - c/w home bronchodilator therapy Hypocalcemia - mild - am labs to monitor trend Anemia - h/o iron infusions in the past - repeat CBC in am - iron studies ordered Written by Princess Groves, acting as scribe for Dr. Vogel on 11/29/16 at 14:26. Attending Statement The documentation accurately reflects the work performed [id number] by or, Dr. Duff on 11/29/16 at 14:26. Princess Groves PA-C Nov 29, 2016 14:16 Mario Duff MD Nov 29, 2016 23:35
[2016-11-29 17:02] LABS: BLOOD, URINE NEG (NEG); COMMENT (UR) CULT NOT INDICATED; CULTURE IF INDICATED CULT NOT INDICATED; GLUCOSE,URINE NEG (NEG); KETONE, URINE NEG (NEG); MUCUS URINE FEW /lpf (OCC); NITRITE,URINE NEG (NEG); PH, URINE 5.5 (5.0-8.5); URINE COLOR LIGHT-YELLOW (YELLW/STRAW)
[2016-11-29] MEDS: amLODIPine BESYLATE 5 MG TAB PO SCH (17:03)
[2016-11-29] MEDS: CALCITRIOL 0.25 MCG CAP PO SCH (21:00)
[2016-11-29] MEDS: CILOSTAZOL 100 MG TAB PO SCH (23:18)
[2016-11-29] MEDS: ATORVASTATIN 40 MG TAB PO SCH (23:19)
[2016-11-30 02:13] VITALS: BP 175/83; PULSE 81; RESP 16; TEMP 98.8; O2SAT 98
[2016-11-30 06:37] VITALS: BP 122/51; PULSE 84; RESP 16; TEMP 98.7; O2SAT 99
[2016-11-30] MEDS: INSULIN ASPART SUPPLEMENTAL SCALE SQ SCH ×2 (07:00→11:31)
[2016-11-30 07:29] LABS: AUTOMATED NEUTROPHIL # 7.3 TH/MM3 (1.8-7.7); BASOPHIL # 0.1 TH/MM3 (0-0.2); BASOPHIL % 0.7 % (0.0-2.0); EOSINOPHIL # 0.6 TH/MM3 (0-0.4); EOSINOPHIL % 6.3 % (0.0-4.0); HEMATOCRIT 27.4 % (39.0-51.0); HEMO FLAGS DIFF FINAL; LYMPH % 11.1 % (9.0-44.0); LYMPHOCYTE # 1.1 TH/MM3 (1.0-4.8); MEAN CELL VOLUME 89.8 FL (80.0-100.0); MEAN CORPUSCULAR HGB CONC 34.5 % (32.0-36.0); MONO % 9.3 % (0.0-8.0); NEUT % 72.6 % (16.0-70.0); PLATELET COUNT 139 TH/MM3 (150-450); RED BLOOD COUNT 3.05 MIL/MM3 (4.50-5.90); RED CELL DISTRIBUTION WIDTH 14.7 % (11.6-17.2)
[2016-11-30 07:47] LABS: ANION GAP 10 MEQ/L (5-15); BICARBONATE 20.9 MEQ/L (21.0-32.0); BLOOD UREA NITROGEN 29 MG/DL (7-18); CHLORIDE 113 MEQ/L (98-107); FERRITIN 261 NG/ML (26-388); GLOMERULAR FILTRATION RATE 33 ML/MIN (>89); POTASSIUM 4.1 MEQ/L (3.5-5.1); SODIUM (NA) 144 MEQ/L (136-145); TRANSFERRIN IRON PROFILE 141 MG/DL (200-360)
[2016-11-30] MEDS: NIACIN 500 MG EXTENDED RELEASE TAB PO SCH (08:01)
[2016-11-30] MEDS: APIXABAN 5 MG TABLET PO SCH (08:01)
[2016-11-30] MEDS: amLODIPine BESYLATE 5 MG TAB PO SCH (08:01)
[2016-11-30] MEDS: FOLIC ACID 1 MG TAB PO SCH (08:01)
[2016-11-30] MEDS: METOPROLOL TARTRATE 25 MG TAB PO SCH (08:01)
[2016-11-30] MEDS: SODIUM CHLORIDE 0.9% FLUSH 5 ML FLUSH FLUSH SCH (08:01)
[2016-11-30] MEDS: DIGOXIN 0.125 MG TAB PO SCH (08:01)
[2016-11-30] MEDS: BUDESONIDE-FORMOTEROL 80/4.5 MCG INHALER INH SCH (08:02)
[2016-11-30 08:08] VITALS: BP 128/50; PULSE 82; RESP 18; TEMP 97.7; O2SAT 99
--- NOTE | 2016-11-30 10:33 | HHI.NPPN ---
Subjective General Problems: Anemia, Edema, Hypertension Renal Failure: Chronic, Acute, Stage III History of Present Illness 81-year-old male with past medical history of hypertension, chronic kidney disease, diabetes mellitus, hyperlipidemia, peripheral vascular disease, chronic obstructive pulmonary disease who was admitted mainly for the vascular procedures of the legs. I was called to see the patient because of elevated BUN and creatinine. The patient has a known history of chronic kidney disease, he has been following with Dr. Nunez and according to the patient his GFR was fluctuating from 29-36%. Additional Remarks Patient is alert, no SOB, feeling better, able to walk , no pain in legs. Objective Data Data 11/29/16 11/30/16 19:00 07:00 Intake Total 1200 ml 1680 ml Output Total 1950 ml 850 ml Balance -750 ml 830 ml Intake Oral 1200 ml 480 ml IV Total 1200 ml Output Urine Total 1950 ml 850 ml # Bowel Movements 2 Vital Signs Date Time Temp Pulse Resp B/P Pulse Ox O2 Delivery O2 Flow Rate FiO2 11/30/16 08:08 97.7 82 18 128/50 99 11/30/16 06:37 98.7 84 16 122/51 99 11/30/16 02:13 98.8 81 16 175/83 98 11/29/16 23:00 98.8 81 16 175/83 98 11/29/16 21:33 98.7 83 18 148/67 97 11/29/16 16:09 98.6 86 18 120/62 96 11/29/16 12:00 97.8 85 18 126/63 95 -: 11/30/16 0615 11/30/16 0615 Physical Exam General Appearance: No Acute Distress, Comfortable Eyes Eye Exam: Pupils Equal Neck Neck Exam: Neck Supple Pulmonary Resp Exam: Clear Bilaterally, Breath Sounds Equal, No Distress, Decreased Bases Cardiology CV Exam: Regular, Normal Sinus Rhythm Gastrointestinal/Abdomen GI Exam: Soft, Non-Tender, Bowel Sounds Present, Non-Distended Extremeties Extremities Exam: Trace Edema Neurologic Neuro Exam: Alert, Awake, Oriented Psychiatric Psych Exam: Appropriate Responses Assessment/Plan Assessment Summary: ARCHIE/Acute Renal Failure, Hypertension, CKD Stage III Problem List: (1) Hypertension (2) Chronic a-fib (3) CAD (coronary artery disease) (4) PVD (peripheral vascular disease) (5) Claudication (6) Stage 3 chronic kidney disease (7) Acute kidney injury Plan Patient has been non oliguric. Has chronic kidney disease and develop ARCHIE, possibly related to contrast. Now Creatinine decreased to 1.9, close to his baseline. Can be discharged. He will follow with Dr. Nunez. Problem Qualifiers (1) Hypertension: Qualified Code: I10 - Essential hypertension Regina Chan MD Nov 30, 2016 10:33
[2016-11-30] MEDS ORDERED: AMLO5 PO (10:51)
[2016-11-30] MEDS: SODIUM CHLOR 0.45% 1000 ML INJ 1,000 ML IV SCH (11:30)
[2016-11-30 12:10] VITALS: BP 112/56; PULSE 88; RESP 18; TEMP 97.7; O2SAT 98
[2016-11-30 12:11] LABS: HEMOGLOBIN A1a 0.9 %; HEMOGLOBIN LA1C 2.8 %; HEMOGLOBIN P3 6.5 %
[2016-11-30] MEDS ORDERED: DOCUSATE SODIUM 100 MG CAP PO SCH (21:00)
--- NOTE | 2016-12-12 06:29 | HHI.DS ---
Discharge Summary Admission Date Nov 26, 2016 at 12:45 Discharge Date: Nov 30, 2016 Admitting Diagnosis (1) Acute kidney injury ICD Code: N17.9 (2) PVD (peripheral vascular disease) ICD Code: I73.9 Procedures thrombolysis and angioplasty of left femoral bypass graft. Brief History - From Admission 81-year-old male with multiple multiple medical problems. The patient is known to Dr Fowler vascular surgeon for previous vascular procedures. Patient says he had his [address] Fowler a week ago and says he also had experienced some pain in his right leg more than usual getting worse over the past week. The patient was seen by Dr Fowler in his office was found with complete occlusion of femoral graft IS and he was sent to [facility] for IR intervention by IR, patient is s/p Us guided thrombolytic infusion. He is observed overnight in ICU. Patient was seen after the procedure in ICU. He feels good. No fever or chills. No n/v/d/c. Was able to eat without n/v. Plan for repeat thrombolytic infusion tomorrow . Patient is NPO . Will hold lantus and all his home DM meds for now. will place on ISS and accuchecks. Patient has no pain at this time. Doppler US at bedside shows good peripheral pulses. No rash. Legs are warm, neurovascular intact. No fever or chills. No chest pain or sob. No diaphoresis, lightheadedness. Denies headache, change in vision. Able to urinate after the procedure, no hematuria. No over bleeding. Imaging Last Impressions Upper Extremity Ultrasound 11/28/16 0000 Signed Impressions: Service Date/Time: Monday, November 28, 2016 11:10 - CONCLUSION: There is no thrombosis identified. Han Potts MD FACR Renal Ultrasound 11/28/16 0000 Signed Impressions: Service Date/Time: Monday, November 28, 2016 11:23 - CONCLUSION: There is no hydronephrosis Small kidneys with nonobstructing stones on the right Small amount of perinephric fluid on the left. Han Potts MD FACR Miscellaneous Special Procedure 11/27/16 0000 Signed Impressions: Service Date/Time: Sunday, November 27, 2016 11:02 - CONCLUSION: 1. Uncomplicated thrombolysis and angioplasty of occluded femoral femoral bypass graft. Jb Nayak MD Angiography 11/26/16 0000 Signed Impressions: Service Date/Time: Saturday, November 26, 2016 11:27 - CONCLUSION: Uncomplicated initiation of thrombolytic therapy as above. Complete occlusion of femoral-femoral bypass graft Jb Nayak MD PE at Discharge GENERAL: This is a well-nourished, well-developed patient, in no apparent distress. no chnages on exam SKIN: No rashes, ecchymoses or lesions. Cool and dry. HEAD: Atraumatic. Normocephalic. No temporal or scalp tenderness. EYES: Pupils equal round and reactive. Extraocular motions intact. No scleral icterus. No injection or drainage. ENT: Nose without bleeding, purulent drainage or septal hematoma. MMM. NECK: Trachea midline. No JVD or lymphadenopathy. CARDIOVASCULAR: Regular rate and rhythm without murmurs, gallops, or rubs. Mild , trace BLE. RESPIRATORY: Clear to auscultation. Breath sounds equal bilaterally. No wheezes , rales, or rhonchi. GASTROINTESTINAL: Abdomen soft, non-tender, nondistended. No hepato-splenomegaly , or palpable masses. No guarding. MUSCULOSKELETAL: Extremities without clubbing, cyanosis, or edema. No joint tenderness, effusion, or edema noted. NEUROLOGICAL: Awake and alert. Cranial nerves II through XII intact. Motor and sensory grossly within normal limits. Five out of 5 muscle strength in all muscle groups. Normal speech. Pt update on day of discharge pt says he feels well. would like to go home. Hospital Course Left occluded femoral bypass graft underwent thrombolysis and angioplasty. For CORIE, creatinine was monitored, and found to be stable during admission. Renal ultrasound with small kidneys, nonobstructing renal stones. Nephrology followed on admission. Creatinine 1.9 by discharge. Creatinine close to baseline. He will need to follow-up with Dr. CAMPBELL. Lisinopril was discontinued , amlodipine started. He'll need follow-up with primary care, surgery. For problem-based summary from most recent progress note, please see below. ARCHIE on CKD - unknown baseline, creatinine trending upwards 2.10 -> 1.86 -> 2.41 - possibly related to procedural contrast - Nephrology following - on IVF - closely monitor creatinine - labs in am to assess trend - avoid nephrotoxic agents - SCOT results noted - FENa ordered - repeat UA - PVR - hold ACEI PVD with h/o complete occlusion of femoral graft - s/p fempop revascularization with TPA by IR - c/w Pletal - ambulated over 200ft with PT DM - c/w accuchecks - obtain A1c - BS adequately controlled - c/w ISS HTN - trends shows good control with current regimen except for single elevated measurement - c/w BB - hold ACEI due to ARCHIE - add Norvasc HLD - c/w home Lipitor CAD s/p CABG, h/o atrial fibrillation - c/w current med regimen including Eliquis for OAC - plan to resume daily ASA in am COPD - controlled - c/w home bronchodilator therapy Hypocalcemia - mild - am labs to monitor trend Anemia - h/o iron infusions in the past - repeat CBC in am - iron studies ordered Pt Condition on Discharge: Stable Discharge Disposition: Disch w/ Home Health Serv Discharge Time: <= 30 minutes Discharge Instructions DIET: Follow Instructions for: As Tolerated, No Restrictions Activities you can perform: Regular-No Restrictions Follow up Referrals: PCP Follow-up - 3-5 Days Surgical - 1 Week with Jevon Fowler MD New Medications: Amlodipine (Norvasc) 5 Mg Tab 5 MG PO DAILY Blood pressure Days 30 TAB Continued Medications: Apixaban (Eliquis) 5 Mg Tab 5 MG PO BID Blood Clot Prevention #60 Ref 0 TAB Atorvastatin (Atorvastatin) 80 Mg Tab 40 MG PO HS Cholesterol Management #30 Ref 0 TAB Budesonide-Formoterol Inh (Symbicort Inh) 80-4.5 Mcg/Act Aero 2 PUFF INH BID Asthma Management #1 Ref 0 INHALER Calcitriol (Calcitriol) 0.25 Mcg Cap 0.25 MCG PO HS Calcium Supplement #30 Ref 0 CAP Cilostazol (Cilostazol) 100 Mg Tab 100 MG PO HS INTERMITTENT CLAUDICATION Ref 0 TAB Coenzyme Q10 (Ubidecarenone) (Coq-10) 100 Mg Cap 1 CAP PO DAILY Digoxin (Digoxin) 0.125 Mg Tab 0.125 MG PO EVERY OTHER DAY Regulate Heart Beat #30 Ref 0 TAB Folic Acid (Folic Acid) 400 Mcg Tab 400 MCG PO DAILY Nutritional Supplement Ref 0 TAB Insulin Glargine Inj (Lantus Solostar Pen Inj) 300 Unit/3 Ml Pen 26 UNITS SQ HS Blood Sugar Management Ref 0 PEN Krill Oil (Krill Oil [place]-3 300 mg) 1 Cap Cap 1 CAP PO DAILY Metoprolol Tartrate (Metoprolol Tartrate) 25 Mg Tab 25 MG PO BID #60 Ref 0 TAB Multiple Vitamins W/ Minerals (Centrum Silver) 1 Tab 1 TAB PO DAILY Nutritional Supplement Ref 0 TAB Niacinamide (Niacin) 500 Mg Tab 1 TAB PO BID Discontinued Medications: Lisinopril (Lisinopril) 40 Mg Tab 40 MG PO DAILY Blood Pressure Management #30 Ref 0 TAB Mario Duff MD Dec 12, 2016 06:29
== END 2016-11-30 14:20 | disposition home health service (06) | DRG 253 ==
LOC: HRIP 08:59 → HROP 08:59 → N03B 12:45 → HROP 15:29 → HCIN 11-28 17:12
PROVIDERS: ADMIT Internal Medicine; ATTEND Internal Medicine
PROC: 3E05317 Introduction of Other Thrombolytic into Peripheral Artery, Percutaneous Approach (ICD-10-PCS; 2016-11-26)
PROC: 047L3ZZ Dilation of Left Femoral Artery, Percutaneous Approach (ICD-10-PCS; principal; 2016-11-27)
DX: T82.868A Thrombosis due to vascular prosthetic devices, implants and grafts, initial encounter (principal); N17.9 Acute kidney failure, unspecified; E11.22 Type 2 diabetes mellitus with diabetic chronic kidney disease; E11.42 Type 2 diabetes mellitus with diabetic polyneuropathy; E11.59 Type 2 diabetes mellitus with other circulatory complications; I48.2 Chronic atrial fibrillation; J44.9 Chronic obstructive pulmonary disease, unspecified; I25.10 Atherosclerotic heart disease of native coronary artery without angina pectoris; E78.00 Pure hypercholesterolemia, unspecified; M47.817 Spondylosis without myelopathy or radiculopathy, lumbosacral region; I73.9 Peripheral vascular disease, unspecified; I12.9 Hypertensive chronic kidney disease with stage 1 through stage 4 chronic kidney disease, or unspecified chronic kidney disease; N18.3 Chronic kidney disease, stage 3 (moderate); E11.51 Type 2 diabetes mellitus with diabetic peripheral angiopathy without gangrene; E78.5 Hyperlipidemia, unspecified; D64.9 Anemia, unspecified; M19.041 Primary osteoarthritis, right hand; E83.51 Hypocalcemia; Z79.01 Long term (current) use of anticoagulants; Z79.4 Long term (current) use of insulin; Z87.891 Personal history of nicotine dependence; Z88.0 Allergy status to penicillin; Z95.1 Presence of aortocoronary bypass graft
CPT/HCPCS: 36200; 37211; 37213; 37224; 75625; 76775; 76937; 80048; 81001; 82570; 82728; 82948; 83036; 83540; 83550; 83735; 84300; 85025; 85027; 85384; 85610; 85730; 93971; 99152; 99153; C1725; C1757; C1769; C1887; C1894; J1644; J1815; J2250; J2270; J2997; J3010; J7030; J7040; Q9967

== ENCOUNTER 2016-12-05 13:39 | Day surgery (SDC) | payer MEDICARE, BC ==
[~2016-12-05 13:39] MED LIST changes: +AMLO5 PO; +APIX5TAB PO; -ASTE137S5; +ATOR1TAB18 PO; +CALC0.25 PO; +CENTTAB PO; -CENTTAB9 PO; -CLOP75 PO; +COQ-100C2 PO; -EQL400TA PO; +FOLI400T PO; -GABA300C3 PO; -KRIL300C PO; +KRIL300C3 PO; -LANTINJ SC; +LANTINJ SQ; -LISI-366 PO; -METF-324 PO; -METO25 PO; +METO25TA3 PO; +NIAC500T18 PO; -ROSU5 PO; -SYMB160A INH; +SYMB80AE INH; -WARF5TAB PO; -ZYRT10TA12 PO
[2016-12-05 13:55] VITALS: BP 148/85; PULSE 80; RESP 16; TEMP 98.1; O2SAT 96
== END 2016-12-05 14:20 | disposition home or self-care (01) ==
LOC: HROP 13:39 → HRIP 13:43 → HROP 14:20
PROVIDERS: ATTEND Radiology Body Imaging
DX: I73.9 Peripheral vascular disease, unspecified (principal)

== ENCOUNTER 2017-06-17 07:27 | Day surgery (SDC) | payer MEDICARE, BC ==
[2017-06-17] VITALS (11 sets, daily range): BP systolic 103–181; BP diastolic 65–91; PULSE 51–76; RESP 18; TEMP 97.7–98.1; O2SAT 93–97
[~2017-06-17] VITALS: Ht 177.8 cm; Wt 110.0 kg
[2017-06-17] MEDS ORDERED: IODIXANOL 320 MG/ML 50 ML VIAL (for RAD SPEC) I-ARTERIAL ONE (07:28)
[2017-06-17] MEDS ORDERED: COQ150CA (07:57)
[2017-06-17] MEDS ORDERED: NIAC500T5 PO (07:57)
[2017-06-17] MEDS ORDERED: MULT-65 PO (07:57)
[2017-06-17] MEDS ORDERED: SODIUM CHLOR 0.9% 1000 ML INJ 1,000 ML IV SCH ×2 (08:00→14:09)
[2017-06-17 08:31] LABS: BASOPHIL # 0.1 TH/MM3 (0-0.2); EOSINOPHIL # 0.3 TH/MM3 (0-0.4); EOSINOPHIL % 3.1 % (0.0-4.0); HEMATOCRIT 34.9 % (39.0-51.0); HEMO FLAGS DIFF FINAL; LYMPHOCYTE # 1.3 TH/MM3 (1.0-4.8); MEAN CELL VOLUME 91.5 FL (80.0-100.0); MEAN CORPUSCULAR HGB CONC 33.9 % (32.0-36.0); MONO % 11.6 % (0.0-8.0); NEUT % 69.3 % (16.0-70.0); PLATELET COUNT 191 TH/MM3 (150-450); RED BLOOD COUNT 3.82 MIL/MM3 (4.50-5.90); RED CELL DISTRIBUTION WIDTH 14.4 % (11.6-17.2); WHITE BLOOD COUNT 8.7 TH/MM3 (4.0-11.0)
[2017-06-17 08:41] LABS: APTT (PATIENT) 26.6 SEC (24.3-30.1); PROTHROMBIN TIME - PATIENT 11.3 SEC (9.8-11.6)
[2017-06-17 08:53] LABS: BICARBONATE 22.9 MEQ/L (21.0-32.0); POTASSIUM 4.3 MEQ/L (3.5-5.1)
[2017-06-17] MEDS ORDERED: MIDAZOLAM HCL 2 MG/2 ML VIAL ONE ×2 (09:36)
[2017-06-17] MEDS ORDERED: fentaNYL CITRATE 250 MCG/5 ML AMP ONE (09:36)
[2017-06-17] MEDS ORDERED: HEPARIN SODIUM - IV 10,000 UNITS/10 ML VIAL ONE (10:46)
[2017-06-17] MEDS ORDERED: LABETALOL HCL 100 MG/20 ML VIAL ONE (11:55)
[2017-06-17] MEDS ORDERED: HYDROmorphone HCL PF 2 MG/ML VIAL ONE (12:42)
[2017-06-17] MEDS ORDERED: LEVOFLOXACIN 500 MG PREMIX INJ 100 ML IV ONE (12:48)
--- NOTE | 2017-06-17 14:11 | PD.RAD ---
Post Procedure Progress Note Pre Procedure Diagnosis: (1) Claudication Post Procedure Diagnosis: (1) Claudication Procedure Date: Jun 17, 2017 Supervising Radiologist: Jb Nayak Proceduralist/Assist: Henry Valdez, RT(R), Tina Tran RT(R) Anesthesia: Conscious Sedation Plan of Activity Patient to Unit: ROPU Patient Condition: Good See PACS Report for procedural detail/treatment Vascular-Arterial Procedure Procedure 1 Procedure Site: Left Leg Procedure(s): Angioplasty, Atherectomy Access Access Site(s): Other (femoral bypass) Jb Nayak MD Jun 17, 2017 14:10
[2017-06-17] MEDS ORDERED: oxyCODONE/ACETAMINOPHEN 5 MG/325 MG TAB PO PRN (14:15)
[2017-06-17] MEDS ORDERED: ACETAMINOPHEN 325 MG TAB PO PRN (14:15)
--- NOTE | 2017-06-17 15:26 | RADRPT ---
EXAM DATE/TIME: 06/17/2017 09:51 [place] COMPARISON: No previous studies available for comparison. INDICATIONS : Patient with history of arterial stenosis in need of left leg angiogram. MEDICAL HISTORY : HTN, Diabetes, A-Fib, COPD, Emphysema, Renal disease, MRSA, CAD, DDD, HLD, Claudication SURGICAL HISTORY : Right ureteral stent placement, CABG, Right and left carotid endarterectomy, Left common iliac stent placement and right femoral femoral bypass, Thrombolytic infusion ENCOUNTER: Subsequent ACUITY: 4-6 months PAIN SCORE: 0/10 FLUORO TIME: 45.3 minutes IMAGE SERIES: 8 ACCESS SITE: Right femoral bypass SEDATION TIME: 180 minutes CONTRAST: 1.) 15 cc Visipaque (iodixanol) MEDICATION(S): 1.) 6 mg midazolam (Versed) IV 2.) 350 mcg fentanyl (Sublimaze) IV 3.) 200 mcg Nitroglycerine IART 4.) 8000 units Heparin IV 5.) 20 mg Labetalol IV 6.) 500 mg levofloxacin (Levaquin) IV Intra-procedural antibiotics were given as prescribed above. DEVICE(S): 1.) Left popliteal artery 6MM SpideRX embolic protection 2.) Left superficial femoral artery EV3 Turbohawk LS-M atherectomy device 3.) Left superficial femoral/popliteal artery SEED SPECIALIST balloon Paul SL [id number] 150CM 4.) Left superficial femoral/popliteal artery SEED SPECIALIST balloon Paul SL [id number] 150CM 5.) Left superficial femoral/popliteal artery SEED SPECIALIST balloon Paul [id number] 150CM 6.) Right common femoral artery Syvek pad PROCEDURE : 1. Ultrasound-guided puncture of the access site. 2. Conscious sedation with continuous EKG and Oximetry monitoring. 3. Angiography of the left lower extremity via left common femoral artery approach 4. atherectomy of the left femoral popliteal segment 5. angioplasty of the left femoral-popliteal segment 6. Intravascular filter placement The risks, benefits and alternatives to the procedure were explained and verbal and written consent w as obtained. The site was prepped in sterile fashion. Full sterile technique was used, including ca p, mask, sterile gloves and gown and a large sterile sheet. Hand hygiene and 2% chlorhexidine and/or betadine/alcohol prep was utilized per protocol for cutaneous antisepsis. The skin and subcutaneous tissues were infiltrated with local anesthetic solution. With ultrasound and fluoroscopic guidance the selected artery was punctured and a vascular sheath was placed in the femoral-femoral bypass from right to left. A JB2 catheter was placed in the common fem oral artery and runoff of the left lower extremity via left common femoral artery approach demonstrat es high-grade stenosis in the mid left femoral artery and segmental occlusion over a short segment in volving the junction of the femoral-popliteal segment over 5 cm. An 8 Welsh sheath was placed proximal to the stenosis and using the atherectomy device the proximal stenosis was treated. A guidewire was used to cross the chronic occlusion of the femoral-popliteal se gment and angioplasty was subsequently performed using 2 mm and 3.5 mm balloons to create a channel f or access of the atherectomy device. Following this atherectomy was performed of the occluded segment . Enteroclysis performed using a 6 mm balloon over the entire treated segment with good flow distally . The puncture site was closed with manual pressure and hemostasis was obtained. The patient tolerated the procedure well and there were no complications. Conscious sedation was performed with the prescribed dosages and duration as above in the presence of an independent trained radiology nurse to assist in the monitoring of the patient. EKG and oximetry remained stable throughout the procedure. CONCLUSION: 1. Uncomplicated atherectomy of the left femoral-popliteal segment is above Jb Nayak MD on June 17, 2017 at 15:14 Board Certified Radiologist. This report was verified electronically.
== END 2017-06-17 18:42 | disposition home or self-care (01) ==
LOC: HROP 07:27 → HRIP 07:29 → HROP 18:42
PROVIDERS: ATTEND Surgery Vascular Surgery
DX: I73.9 Peripheral vascular disease, unspecified (principal); E11.9 Type 2 diabetes mellitus without complications; J44.9 Chronic obstructive pulmonary disease, unspecified; E78.5 Hyperlipidemia, unspecified; I25.10 Atherosclerotic heart disease of native coronary artery without angina pectoris; I10 Essential (primary) hypertension; I48.91 Unspecified atrial fibrillation; Z95.1 Presence of aortocoronary bypass graft
CPT/HCPCS: 36247; 37225; 75710; 76937; 80048; 85025; 85347; 85610; 85730; 99152; 99153; C1714; C1725; C1760; C1769; C1884; C1887; C1894; J1170; J1644; J1956; J2250; J3010; J7030; Q9967

== ENCOUNTER 2017-06-25 13:19 | Day surgery (SDC) | payer MEDICARE, BC ==
[~2017-06-25 13:19] MED LIST changes: -CENTTAB PO; -CILO100T PO; -COQ-100C2 PO; +COQ150CA; +MULT-65 PO; -NIAC500T18 PO; +NIAC500T5 PO
[2017-06-25 13:33] VITALS: BP 137/65; PULSE 63; RESP 18; TEMP 98.4; O2SAT 95
== END 2017-06-25 14:40 | disposition home or self-care (01) ==
LOC: HROP 13:19 → HRIP 13:20 → HROP 14:40
PROVIDERS: ATTEND Radiology Body Imaging
DX: Z09 Encounter for follow-up examination after completed treatment for conditions other than malignant neoplasm (principal)